=== PATIENT | male | born 1975 | race Caucasian/White ===

== ENCOUNTER 2019-08-15 17:30 | Emergency (ER) | payer OTHER ==
[~2019-08-15] VITALS: Ht 180.3 cm; Wt 99.3 kg
[2019-08-15 17:51] VITALS: Ht 180.3 cm; Wt 99.3 kg
[2019-08-15 18:54] VITALS: BP 141/80
== END 2019-08-15 18:54 | disposition home or self-care (01) ==
LOC: ED 17:30
DX: S56.497A Other injury of extensor muscle, fascia and tendon of right little finger at forearm level, initial encounter (principal); W26.8XXA Contact with other sharp object(s), not elsewhere classified, initial encounter; Y93.89 Activity, other specified; Y92.89 Other specified places as the place of occurrence of the external cause; Y99.8 Other external cause status
CPT/HCPCS: 90715; J2001